=== PATIENT | male | born 1975 | race Caucasian/White ===

== ENCOUNTER 2022-04-29 08:24 | Day surgery (SDC) | payer OTHER, SELFPAY ==
--- NOTE | 2022-04-28 13:30 | P.CONAN_ITS ---
HPI - Anesthesia Eval Consult details Narrative: 46yo M for Colonoscopy [facility] Past Medical History Medical History Allergic rhinitis Asthma Diabetes Elevated cholesterol HTN (hypertension) Sleep apnea Surgical History Surgical History (Updated 04/29/22 @ 09:07 by Sylvia Moore, RN) Hx of appendectomy Hx of colonoscopy Social History Social History Patient Tobacco Use Status: Never used Tobacco Substance Use Frequency: Occasionally Are you DNR?: No Advance Directives: No Advance Directives Information Provided: Yes Nutrition Risks: No Nutritional Risk Meds Allergies Allergy/AdvReac Type Severity Reaction Status Date / Time No Known Allergies Allergy Verified 04/29/22 09:07 Home Medications Medication Instructions Recorded Confirmed Last Taken Type aspirin 81 mg tablet 81 mg PO DAILY 04/28/22 04/28/22 04/21/22 History atorvastatin 80 mg tablet 1 tab PO DAILY 04/28/22 04/28/22 Unknown History dulaglutide 1.5 mg/0.5 mL 0.5 ml subcut QWEEK 04/28/22 04/28/22 Unknown History subcutaneous pen injector (Trulicity) lisinopril 40 mg tablet 1 tab PO DAILY 04/28/22 04/28/22 Unknown History metformin 500 mg tablet,extended 1 tab PO DAILY 04/28/22 04/28/22 Unknown History release 24 hr metoprolol succinate 100 mg 1 tab PO DAILY 04/28/22 04/28/22 04/29/22 History tablet,extended release 24 hr Exam Exam Date and Time: April 28, 2022 1330 Assessment and Plan Assessment Anesthesia Assessment: Chart Reviewed
[2022-04-29 08:43] VITALS: BMI 67.1
[2022-04-29] MEDS: Lactated Ringers 1,000 ML 100 ML IVCONT (08:51)
[2022-04-29 08:58] LABS: Glucose, Whole Blood 187 mg/dL (60-115)
[2022-04-29 09:05] VITALS: BP 147/83; PULSE 93; RESP 18; TEMP 36.4; O2SAT 94
--- NOTE | 2022-04-29 09:27 | MHC.SHP ---
Pre-Procedural Eval Section A Date of Service: 04/29/22 The patient is an INPATIENT: No Changes since office visit: No Cold of Flu in the past 2 weeks, No New Medical Problems, No Changes in Medication and No Patient answered all questions The History & Physical has been completed within 30 days and I have reviewed it.: Yes Section B Chief Complaint: screening Allergies: Allergies Allergy/AdvReac Type Severity Reaction Status Date / Time No Known Allergies Allergy Verified 04/29/22 09:07 Plan I have reviewed the history and physical and performed a pertinent physical examination on my patient. No changes have occurred unless specified.
--- NOTE | 2022-04-29 10:03 | P.BOP_ITS ---
Brief Operative Note Date of Service: 04/29/22 Pre-op diagnosis: screening Post-op diagnosis: same Procedure: colonoscopy Surgeon: Ascencion Sauceda Anesthesia: MAC Was an [employer] used for this Procedure?: No Estimated blood loss (mL): 0 Pathology: none sent Condition: stable Disposition: PACU
[2022-04-29 10:06] VITALS: BP 130/73; PULSE 89; RESP 20; TEMP 37.1; O2SAT 96
[2022-04-29 10:15] VITALS: BP 114/69; PULSE 88; RESP 18; TEMP 36.8; O2SAT 95
--- NOTE | 2022-04-29 10:20 | OP_ITS ---
SURGEON: Ascencion Sauceda MD INDICATIONS: Colon cancer screening. PREOPERATIVE DIAGNOSIS: POSTOPERATIVE DIAGNOSIS: PROCEDURE PERFORMED: Colonoscopy to the terminal ileum. ESTIMATED BLOOD LOSS: COMPLICATIONS: ANESTHESIA: Monitored anesthesia care. ASSISTANTS: SPECIMENS: DESCRIPTION OF PROCEDURE: The procedure was performed on April 29, 2022. A history and physical performed. The risks and benefits of the procedure were explained to the patient. Informed consent was obtained. The patient was placed in the left lateral decubitus position. A digital rectal exam was performed and was found to be normal. The Olympus video colonoscope was introduced into the rectum and advanced to the cecum without difficulty. The cecum was identified by transillumination, palpation, and identification of the ileocecal valve. Examination was performed. The scope was removed. He tolerated the procedure well and was taken to recovery area in stable condition. FINDINGS: The terminal ileum was examined and appeared normal. The visualized colonic mucosa was normal. The quality of the prep was good. No polyps were identified. Retroflexed examination showed small internal hemorrhoids. There were few scattered diverticula seen throughout the colon. IMPRESSION: Normal colonoscopy. RECOMMENDATION: 1. Follow up as needed. 2. Repeat colonoscopy is recommended in 10 years for average risk individuals. MD ROBIN Card/SHELTON / [id number]
== END 2022-04-29 11:03 | disposition home or self-care (01) ==
PROVIDERS: PCP Internal Medicine; Visit Provider Internal Medicine Gastroenterology
PROC: 0DJD8ZZ Inspection of Lower Intestinal Tract, Via Natural or Artificial Opening Endoscopic (ICD-10-PCS; CPT 45378; principal; 2022-04-29 09:40)
DX: Z12.11 Encounter for screening for malignant neoplasm of colon (principal); K64.8 Other hemorrhoids; K57.30 Diverticulosis of large intestine without perforation or abscess without bleeding; I10 Essential (primary) hypertension; E78.5 Hyperlipidemia, unspecified; J45.909 Unspecified asthma, uncomplicated; E11.9 Type 2 diabetes mellitus without complications; E66.9 Obesity, unspecified; Z68.44 Body mass index [BMI] 60.0-69.9, adult; G47.33 Obstructive sleep apnea (adult) (pediatric); Z99.89 Dependence on other enabling machines and devices; Z79.82 Long term (current) use of aspirin; Z79.899 Other long term (current) drug therapy; Z79.84 Long term (current) use of oral hypoglycemic drugs
CPT/HCPCS: 45378; 82947; J2250